=== PATIENT | female | born 1940 | race Caucasian/White ===

== ENCOUNTER 2016-04-27 18:21 | Emergency (ER) | payer OTHER ==
[~2016-04-27] VITALS: Ht 147.3 cm; Wt 103.1 kg
[~2016-04-27 18:21] MED LIST: ALBUTEROL SULF8.5 GM IH; AMLODIPINE BESY10 MG PO; ASPIR 8181 M1 PO; Aspirin E.C. PO; BACTRIM,SEPT1 TABLET PO; BENICAR; BENICAR HCT 201 EACH; CEFEPIME-D2 GM/50 ML IV; COQ-10; COZAAR100 MG PO; Cipro PO; Cozaar PO; DIFLUCAN100 MG PO; Ecotrin PO; FUROSEMIDE PO; FUROSEMIDE40 MG; Flovent 110 mcg IH; GABAPENTIN PO; GABAPENTIN100 MG PO; GABAPENTIN300 MG; GLUCOPHAGE500 MG PO; Glucophage PO; KLOR-CON20 MEQ PO; LASIX20 MG PO; LEVOTHYROXINE150 MCG PO; LIPITOR20 MG PO; LISINOPRIL-HCT1 EAC3 PO; LOPRESSOR100 M1; LOW DOSE ASPIRI81 M2 PO; Lasix PO; Levothroid,Synthroid PO; Lipitor PO; METOPROLOL SUCC50 MG PO; MULTIVITAMIN PACKET; NAPROXEN500 MG PO; NEURONTIN300 MG PO; NORVASC10 MG PO; Neurontin PO; Norvasc PO; PREDNISONE20 MG PO; PROBIOTIC1 EAC1 PO; PROTONIX40 MG PO; PROVENTIL,2.5 MG/0.5 IH; Proventil,Ventolin H IH; Toprol XL PO; Vicodin,Norco 5/325 PO
[2016-04-27 18:46] VITALS: BP 153/74
== END 2016-04-27 19:40 | disposition left against medical advice (07) ==
LOC: EME 18:21
DX: R23.8 Other skin changes (principal); M79.89 Other specified soft tissue disorders; Z53.21 Procedure and treatment not carried out due to patient leaving prior to being seen by health care provider

== ENCOUNTER 2017-01-10 10:25 | Emergency (ER) | payer OTHER ==
[~2017-01-10] VITALS: Ht 147.3 cm; Wt 109.0 kg
[2017-01-10 10:38] VITALS: BP 182/85
== END 2017-01-10 11:52 | disposition home or self-care (01) ==
LOC: EME 10:25
PROC: 0RSWXZZ Reposition Right Finger Phalangeal Joint, External Approach (ICD-10-PCS; principal; 2017-01-10)
DX: S63.256A Unspecified dislocation of right little finger, initial encounter (principal); W18.30XA Fall on same level, unspecified, initial encounter; I10 Essential (primary) hypertension; E03.9 Hypothyroidism, unspecified; E11.9 Type 2 diabetes mellitus without complications; Z79.84 Long term (current) use of oral hypoglycemic drugs; Z79.82 Long term (current) use of aspirin; Z95.0 Presence of cardiac pacemaker
CPT/HCPCS: 73130; 99281; 99284

== ENCOUNTER → 2017-05-03 | Outpatient (CLI) | payer OTHER | END | disposition home or self-care (01) | LOC: NUC 08:00 | DX: M17.11 Unilateral primary osteoarthritis, right knee (principal); R93.7 Abnormal findings on diagnostic imaging of other parts of musculoskeletal system; Z96.652 Presence of left artificial knee joint | CPT/HCPCS: 78315; A9503 ==